=== PATIENT | female | born 1985 | race Hispanic/Latino ===

== ENCOUNTER 2017-02-05 11:57 | Emergency (ER) | payer MEDICAID, OTHER ==
[2017-02-05 12:04] VITALS: RESP 18; TEMP 98.4; O2SAT 99; BMI 18.6
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
--- NOTE | 2017-02-05 13:07 | CT ---
PROCEDURE: CT HEAD WITHOUT CONTRAST. HISTORY: persistent worsening right sided headache COMPARISON: None available. TECHNIQUE: Axial computed tomography images were obtained through the head/brain without intravenous contrast. Radiation dose: Total exam DLP = 677 mGy-cm. This CT exam was performed using one or more of the following dose reduction techniques: Automated exposure control, adjustment of the mA and/or kV according to patient size, and/or use of iterative reconstruction technique. FINDINGS: HEMORRHAGE: No intracranial hemorrhage. BRAIN: No mass effect or edema. No atrophy or chronic microvascular ischemic changes. VENTRICLES: Unremarkable. No hydrocephalus. CALVARIUM: Unremarkable. PARANASAL SINUSES: Unremarkable as visualized. No significant inflammatory changes. MASTOID AIR CELLS: Unremarkable as visualized. No inflammatory changes. OTHER FINDINGS: None. IMPRESSION: Normal CT of the Head.
[2017-02-05] MEDS ORDERED: Morphine 2 mg/ml ISec IVP STA (13:55)
[2017-02-05 15:45] VITALS: BP 119/65; PULSE 63
== END 2017-02-05 16:37 | disposition home or self-care (01) ==
LOC: ED 11:57
DX: R51 Headache (principal); R56.9 Unspecified convulsions
CPT/HCPCS: 70450; 96374; 96375; 99285; J1885; J2270; J2765

== ENCOUNTER 2018-03-01 17:16 | Emergency (ER) | payer OTHER ==
[2018-03-01 17:28] VITALS: BMI 19.5
[2018-03-01 17:29] VITALS: O2SAT 100
[2018-03-01] MEDS ORDERED: Sodium Chloride 0.9% 1,000 ML IV STA (17:47)
[2018-03-01 18:25] LABS: BASO # 0.02 K/mm3 (0.0-2.0); BASO % 0.2 % (0.0-3.0); EOS % 0.2 % (1.5-5.0); GRAN # 7.11 (1.4-6.5); GRAN % 70.3 % (50.0-68.0); HEMOGLOBIN 14.1 g/dL (12.0-16.0); LYMPH # 2.4 (1.2-3.4); MEAN CELL VOLUME 87.2 fl (80.0-105.0); MEAN CORPUSCULAR HEMOGLOBIN 30.1 pg (25.0-35.0); MEAN CORPUSCULAR HGB CONC 34.5 g/dl (31.0-37.0); MEAN PLATELET VOLUME 9.2 fl (7.0-11.0); MONO # 0.5 (0.1-0.6); MONO % 5.3 % (1.0-6.0); RBC 4.69 10^6/uL (3.5-6.1); RED CELL DISTRIBUTION WIDTH 12.6 % (11.5-14.5); WHITE BLOOD COUNT 10.1 10^3/ul (4.5-11.0)
--- NOTE | 2018-03-01 18:29 | ED PDOC ---
Arrival/HPI - General Chief Complaint: Abdominal Pain Time Seen by Provider: 03/01/18 17:47 Historian: Patient - History of Present Illness Narrative History of Present Illness (Text): 03/01/18 18:41 32yr old + smoker presents today with a 1 week history of lower abdominal pain. pt states she took 2 home tests and they were positive. pt states last menstrual period was mid december. pt denies any vaginal bleeding since that time. pt states she has crampy left sided abdominal pain and suprapubic pain. pt denies n/v/d/c. no cp or sob. no urinary symptoms. no fever/chills. pt denies hx of ectopic . pt denies hx of STDs in the past. c/o low back pain.and breast fullness. no other complaints. Time/Duration: 1 week Past Medical History - Provider Review Nursing Documentation Reviewed: Yes - Travel History Have you recently traveled outside [place] w/in the past 3 mons?: No - Past History Past History: No Previous - Infectious Disease Hx of Infectious Diseases: None - Tetanus Immunization Tetanus Immunization: Unknown - Past Medical History Past Medical History: No Previous - Cardiac Hx Cardiac Disorders: No - Pulmonary Hx Respiratory Disorders: No - Neurological Hx Seizures: Yes - HEENT Hx HEENT Disorder: No - Renal Hx Kidney Stones: Yes (RENAL CALCULI) - Endocrine/Metabolic Hx Endocrine Disorders: No - Hematological/Oncological Hx Blood Disorders: No - Integumentary Hx Dermatological Disorder: No - Musculoskeletal/Rheumatological Hx Musculoskeletal Disorders: Yes (BULGING DISC,HERNIATED DISC) Hx Falls: No - Gastrointestinal Hx Gastrointestinal Disorders: No - Genitourinary/Gynecological Hx Genitourinary Disorders: Yes (CESEREAN SECTION X 1) Hx Urinary Tract Infection: Yes - Psychiatric Hx Depression: No Hx Emotional Abuse: No Hx Physical Abuse: No Hx Substance Use: No - Surgical History Hx Section: Yes (x1) - Anesthesia Hx Anesthesia: Yes Hx Anesthesia Reactions: No Hx Malignant Hyperthermia: No - Suicidal Assessment Feels Threatened In Home Enviroment: No Family/Social History - Physician Review Nursing Documentation Reviewed: Yes Family/Social History: Unknown Family HX Smoking Status: Current Some Days Smoker Hx Alcohol Use: No Hx Substance Use: No Hx Substance Use Treatment: No Allergies/Home Meds Allergies/Adverse Reactions: Allergies No Known Allergies Allergy (Verified 02/05/17 12:03) Review of Systems - Review of Systems Constitutional: absent: Fatigue, Fevers Respiratory: absent: SOB, Cough Cardiovascular: absent: Chest Pain, Palpitations Gastrointestinal: Abdominal Pain. absent: Constipation, Diarrhea, Nausea, Vomiting Genitourinary Female: absent: Dysuria, Frequency, Hematuria, Vaginal Bleeding, Vaginal Discharge Musculoskeletal: Back Pain. absent: Arthralgias, Neck Pain Skin: absent: Rash, Pruritis Neurological: absent: Headache, Dizziness Psychiatric: absent: Anxiety, Depression Physical Exam Vital Signs Reviewed: Yes Vital Signs Temp Pulse Resp BP Pulse Ox 03/01/18 19:49 92 H 17 118/65 100 03/01/18 17:29 98.6 F 104 H 18 128/78 100 Temperature: Afebrile Blood Pressure: Normal Pulse: Tachycardic Respiratory Rate: Normal Appearance: Positive for: Well-Appearing, Non-Toxic, Comfortable Pain Distress: None Mental Status: Positive for: Alert and Oriented X 3 - Systems Exam Head: Present: Atraumatic Mouth: Present: Moist Mucous Membranes Respiratory/Chest: Present: Clear to Auscultation Cardiovascular: Present: Regular Rate and Rhythm Abdomen: Present: Tenderness (+ minimal left lower pelvic tenderness). No: Distention, Peritoneal Signs Genitourinary/Pelvic Exam: Present: Normal External Genitalia, Cervical os Closed, Other (chaparoned by CIERRA yun). No: Vaginal Discharge, Vaginal Bleeding , Vaginal Lesions, Adenexal Tenderness, Adenexal Mass, Cervical Motion Tendernes , Odor Back: Present: Normal Inspection. No: CVA Tenderness, Midline Tenderness, Paraspinal Tenderness Upper Extremity: Present: Normal ROM Lower Extremity: Present: Normal ROM Neurological: Present: GCS=15, Speech Normal Skin: Present: Warm, Dry, Normal Color. No: Rashes Psychiatric: Present: Alert, Oriented x 3 Medical Decision Making ED Course and Treatment: 03/01/18 19:08 Patient is nontoxic well appearing in no distress. vital signs are stable. CBC: wnl CMP: wnl Beta hC TYPE AND SCREEN: B+ Urinalysis: no leukocytes, urine culture pending Ultrasound: FINDINGS: Limitations: Transabdominal sonographic imaging of the pelvis is limited. Gestation: A single intrauterine gestational sac is identified, with pole and sac. The estimated gestational age is 7 weeks 3 days. heart motion is visualized, with a heart rate of 180 centimeters per second. Placenta/amniotic fluid: There is a small area of hypoechogenicity adjacent to the gestational sac, suggestive of subchorionic hemorrhage. This measures 1.2 x 1.2 x 1.0 cm. Uterus/cervix: A small hypoechoic nabothian cysts identified within the cervix. The cervical length is 2.7 cm. The uterus measures 8.3 x 5.1 x 6.3 cm. No myometrial mass. Ovaries: The right ovary measures 2.9 x 2.5 x 3.3 cm. The left ovary measured 3.2 x 1.5 x 2.5 cm. There is physiologic blood flow within each ovary. Hypoechoic follicles are identified within the ovaries bilaterally. Free fluid: No free fluid. IMPRESSION: 1. A single viable intrauterine gestation is visualized. 2. The estimated gestational age is 7 weeks 3 days. 3. There is a small area of hypoechogenicity adjacent to the gestational sac, suggestive of subchorionic hemorrhage. This measures 1.2 x 1.2 x 1.0 cm. Follow-up ultrasonography is recommended. 4. A small hypoechoic nabothian cysts identified within the cervix. Discussed all the results the patient. advised f/u with the billet bed operator within the next 2 days. advised immediate return if symptoms worsen,persist or if new symptoms develop. advised patient to quit smoking; advised taking vitamins daily. increase fluids. Patient verbalizes understanding of discharge instructions and need for immediate followup. all aspects of this case were discussed the attending of record. Impression: threatened , subchorionic hemorrhage Tylenol every 4 hours as needed for pain Increase fluids Followup with the insole lip turner within the next 2 days Return immediately if symptoms worsen persist or if new symptoms develop: High fevers, heavy bleeding, severe abdominal pain, vomiting, diarrhea, dizziness or weakness or any other concerning symptoms develop. Take vitamins daily. 03/01/18 20:32 Reassessment Condition: Re-examined, Improved - Lab Interpretations Lab Results: 03/01/18 18:00 03/01/18 18:00 Lab Results 03/01/18 19:23: Blood Type Confirm B POSITIVE 03/01/18 18:30: Urine Color Yellow, Urine Appearance Clear, Urine pH 6.0, Ur Specific Brewster 1.025, Urine Protein Trace H, Urine Glucose (UA) Negative, Urine Ketones Trace H, Urine Blood Negative, Urine Nitrate Negative, Urine Bilirubin Negative, Urine Urobilinogen 0.2, Ur Leukocyte Esterase Negative, Urine RBC 0 - 2, Urine WBC 1 - 3, Ur Epithelial Cells 6 - 8, Amorphous Sediment Few, Urine Bacteria Many, Urine Other Uyeast 03/01/18 18:00: WBC 10.1, RBC 4.69, Hgb 14.1, Hct 40.9, MCV 87.2, MCH 30.1, MCHC 34.5, RDW 12.6, Plt Count 329, MPV 9.2, Gran % 70.3 H, Lymph % (Auto) 24.0 , [place] % (Auto) 5.3, Eos % (Auto) 0.2 L, Baso % (Auto) 0.2, Gran # 7.11 H, Lymph # (Auto) 2.4, [place] # (Auto) 0.5, Eos # (Auto) 0.0, Baso # (Auto) 0.02 03/01/18 18:00: Blood Type B POSITIVE, Antibody Screen Negative, BBK History Checked No verified bt 03/01/18 18:00: Beta HCG, Quant 91668.00 H 03/01/18 18:00: Sodium 140, Potassium 4.1, Chloride 101, Carbon Dioxide 26, Anion Gap 18, BUN 8, Creatinine 0.7, Est GFR ( Amer) > 60, Est GFR (Non- Af Amer) > 60, Random Glucose 100, Calcium 9.4, Total Bilirubin 0.2, AST 34, ALT 23, Alkaline Phosphatase 70, Total Protein 7.9, Albumin 4.8, Globulin 3.1, Albumin/Globulin Ratio 1.6 - RAD Interpretation Radiology Orders: 03/01/18 17:55 OB TRANSVAGINAL [US] Stat - Medication Orders Current Medication Orders: Discontinued Medications Acetaminophen (Tylenol 325mg Tab) 650 mg PO STAT STA Stop: 03/01/18 20:24 Sodium Chloride (Sodium Chloride 0.9%) 1,000 mls @ 999 mls/hr IV .Q1H1M STA Stop: 03/01/18 18:47 Last Admin: 03/01/18 18:00 Dose: 999 mls/hr eMAR Start Stop Document 03/01/18 18:00 RD (Rec: 03/01/18 18:15 RD [id number]) Intravenous Solution Start Date 03/01/18 Start Time 18:00 End Date 03/01/18 End time 19:00 Total Infusion Time 60 Disposition/Present on Arrival - Present on Arrival Any Indicators Present on Arrival: No History of DVT/PE: No History of Uncontrolled Diabetes: No Urinary Catheter: No History of Decub. Ulcer: No History Surgical Site Infection Following: None - Disposition Have Diagnosis and Disposition been Completed?: Yes Diagnosis: Threatened , Subchorionic hemorrhage Disposition: HOME/ ROUTINE Disposition Time: 20:26 Patient Plan: Discharge Patient Problems: Current Active Problems Problem Status Onset Subchorionic hemorrhage Acute Threatened Acute Condition: GOOD Discharge Instructions (ExitCare): Threatened Miscarriage (DC), Smoking in Additional Instructions: Tylenol every 4 hours as needed for pain Increase fluids Followup with the insole lip turner within the next 2 days Return immediately if symptoms worsen persist or if new symptoms develop: High fevers, heavy bleeding, severe abdominal pain, vomiting, diarrhea, dizziness or weakness or any other concerning symptoms develop. Take vitamins daily. Quit Smoking! Prescriptions: Multivit/Folic Acid/I [ Plus] 1 tab PO DAILY #30 tab Referrals: Torsten Bryant MD [Primary Care Provider] - Follow up with primary Jasbir Logan MD [Staff Provider] - [place] [facility] [place] [facility]] - Follow up with primary Forms: [employer] (Ghanaian), WORK NOTE
[2018-03-01 18:32] LABS: ALB/GLOB RATIO 1.6 (1.1-1.8); ALBUMIN 4.8 g/dL (3.0-4.8); ALT/SGPT 23 U/L (7-56); AST/SGOT 34 U/L (14-36); BLOOD UREA NITROGEN 8 mg/dL (7-21); CALCIUM 9.4 mg/dL (8.4-10.5); GFR AFRICAN-AMERICAN > 60; GFR NON-AFRICAN AMERICAN > 60
[2018-03-01 18:53] LABS: URINE BILIRUBIN NEGATIVE (NEGATIVE); URINE BLOOD NEGATIVE (NEGATIVE); URINE GLUCOSE (UA) NEGATIVE (NEGATIVE); URINE LEUKOCYTE ESTERASE NEGATIVE Leu/uL (NEGATIVE); URINE PROTEIN TRACE mg/dL (<30 mg/dL); URINE UROBILINOGEN 0.2 E.U./dL (<1 E.U./dL)
[2018-03-01 18:54] LABS: URINE APPEARANCE CLEAR (CLEAR); URINE COLOR YELLOW (YELLOW)
[2018-03-01 18:57] LABS: URINE AMORPHOUS SEDIMENT FEW; URINE BACTERIA MANY (NEG); URINE RBC 0 - 2 /hpf (0-2)
[2018-03-01 19:50] VITALS: RESP 17
--- NOTE | 2018-03-01 20:18 | US ---
EXAM: US First Trimester, Transabdominal US , Transvaginal EXAM DATE/TIME: 03/01/2018 5:55 PM CLINICAL HISTORY: The patient age is 32 years old and is female; Pain; complicated by abdominal or pelvic pain; Left lower quadrant; First trimester; Gestational age or lmp: Lmp 4-15-18; ; Additional info: , pain left sided Facility exam id and description: Us obtransvag ob transvaginal TECHNIQUE: Real-time transabdominal and transvaginal obstetrical ultrasound of the maternal pelvis and a first trimester with image documentation. Transvaginal imaging was used for better evaluation of the fetus and adnexa. COMPARISON: No relevant prior studies available. FINDINGS: Limitations: Transabdominal sonographic imaging of the pelvis is limited. Gestation: A single intrauterine gestational sac is identified, with pole and sac. The estimated gestational age is 7 weeks 3 days. heart motion is visualized, with a heart rate of 180 centimeters per second. Placenta/amniotic fluid: There is a small area of hypoechogenicity adjacent to the gestational sac, suggestive of subchorionic hemorrhage. This measures 1.2 x 1.2 x 1.0 cm. Uterus/cervix: A small hypoechoic nabothian cysts identified within the cervix. The cervical length is 2.7 cm. The uterus measures 8.3 x 5.1 x 6.3 cm. No myometrial mass. Ovaries: The right ovary measures 2.9 x 2.5 x 3.3 cm. The left ovary measured 3.2 x 1.5 x 2.5 cm. There is physiologic blood flow within each ovary. Hypoechoic follicles are identified within the ovaries bilaterally. Free fluid: No free fluid. IMPRESSION: 1. A single viable intrauterine gestation is visualized. 2. The estimated gestational age is 7 weeks 3 days. 3. There is a small area of hypoechogenicity adjacent to the gestational sac, suggestive of subchorionic hemorrhage. This measures 1.2 x 1.2 x 1.0 cm. Follow-up ultrasonography is recommended. 4. A small hypoechoic nabothian cysts identified within the cervix.
[2018-03-01 21:08] VITALS: BP 120/78; PULSE 86; TEMP 98.2
== END 2018-03-01 21:08 | disposition home or self-care (01) ==
LOC: ED 17:16
DX: O20.0 Threatened abortion (principal); Z3A.01 Less than 8 weeks gestation of pregnancy
CPT/HCPCS: 76817; 80053; 81001; 84702; 85025; 86850; 86900; 87086; 96360; 99284; J7030